=== PATIENT | female | born 1945 | race Caucasian/White ===

== ENCOUNTER 2016-09-25 08:40 | Day surgery (SDC) | payer MEDICARE, BC ==
[~2016-09-25 08:40] MED LIST: Cefuroxime 10 MG/ML SYRINGE EYERT SCH; Lidocaine 1% PF 2 ML SDV INJECT SCH
[2016-09-25] MEDS: Polymyxin B/Trimethoprim 10 ML Bottle EYERT SCH ×5 (10:02→11:34)
[2016-09-25] MEDS: Brimonidine 0.2% Ophth Soln 5 ML Bottle EYERT SCH ×3 (10:08→11:27)
[2016-09-25] MEDS: Phenylephrine 2.5% Ophth Soln 2 ML Bot EYERT SCH ×5 (10:15→11:20)
--- NOTE | 2016-09-25 10:22 | PCM.PREANE ---
Preanesthetic Assessment - Procedure Proposed Procedure: Right eye cataract extraction with IOL - Anesthesia/Transfusion/Family Hx Anesthesia History: Prior Anesthesia Without Reaction Type of Anesthesia Reaction: Unknown Family History of Anesthesia Reaction: No Transfusion History: No Prior Transfusion(s) - Review of Systems General: No Symptoms Pulmonary: No Symptoms Cardiovascular: Other (htn controlled with medications) Gastrointestinal: No symptoms Neurological: No Symptoms Other: Reports: None - Physical Assessment NPO Status Date: 09/24/16 NPO Status Time: 18:30 O2 Sat by Pulse Oximetry: 98 Respiratory Rate: 16 Vital Signs: Last Vital Signs Temp 36.7 C 09/25/16 09:53 Pulse 59 L 09/25/16 09:53 Resp 16 09/25/16 09:53 BP 139/49 L 09/25/16 09:53 Pulse Ox 98 09/25/16 09:53 Height: 1.6 m Weight: 79.379 kg ASA Class: 2 Mental Status: Alert & Oriented x3 Airway Class: Mallampati = 2 Dentition: Reports: Normal Dentition Thyro-Mental Finger Breadths: 3 Mouth Opening Finger Breadths: 3 ROM/Head Extension: Full Lungs: Clear to auscultation, Normal respiratory effort Cardiovascular: Regular Rate, Regular Rhythm - Allergies Allergies/Adverse Reactions: Allergies Allergy/AdvReac Type Severity Reaction Status Date / Time No Known Allergies Allergy Verified 09/24/16 16:26 - Blood Blood Available: No Product(s) Available: None - Anesthesia Plan Pre-Op Medication Ordered: None - Acknowledgements Anesthesia Type Planned: MAC Pt an Appropriate Candidate for the Planned Anesthesia: Yes Alternatives and Risks of Anesthesia Discussed w Pt/Guardian: Yes Pt/Guardian Understands and Agrees with Anesthesia Plan: Yes PreAnesthesia Questionnaire - SUBSTANCE USE Smoking Status *Q: Never Smoker Tobacco Use Within Last Twelve Months: No Second Hand Smoke Exposure: No Recreational Drug Use History: No - HOME MEDS Home Medications: Home Meds Hydrochlorothiazide 12.5 mg PO DAILY 09/24/16 [History] Losartan [Cozaar] 50 mg PO DAILY 09/24/16 [History] - CURRENT (IN HOUSE) MEDS Current Meds: Current Medications Brimonidine Tartrate (Alphagan 0.2% Ophth Soln) 0 ml EYERT ASDIRECTED CLARA Stop: 09/25/16 18:00 Last Admin: 09/25/16 10:08 Dose: 1 drop Cefuroxime Sodium (Zinacef) 0 mg EYERT ASDIRECTED CLARA Stop: 09/25/16 18:00 Lidocaine HCl (Xylocaine-Mpf 1%) 10 ml INJECT ASDIRECTED CLARA Stop: 09/25/16 18:00 Phenylephrine HCl (Nura-Synephrine 2.5% Ophth Soln) 0 ml EYERT ASDIRECTED CLARA Stop: 09/25/16 18:00 Pilocarpine HCl (Pilocar 4% Ophth Soln) 0 ml EYERT ASDIRECTED CLARA Stop: 09/25/16 18:00 Polymyxin/Trimethoprim Sulfate (Polytrim Ophth Soln) 0 ml EYERT ASDIRECTED CLARA Stop: 09/25/16 18:00 Last Admin: 09/25/16 10:02 Dose: 1 drop Tetracaine HCl (Tetracaine 0.5% Steri-Unit Taisha) 0 ml EYERT ASDIRECTED CLARA Stop: 09/25/16 18:00 Tropicamide (Mydriacyl 1% Ophth Soln) 0 ml EYERT ASDIRECTED CLARA Stop: 09/25/16 18:00
[2016-09-25] MEDS: Tetracaine HCl/PF 0.5% 4 ML Bottle EYERT SCH ×2 (11:14→11:27)
[2016-09-25] MEDS: Pilocarpine 4% Ophth Soln 15 ML Bot EYERT SCH ×2 (11:27→11:35)
--- NOTE | 2016-09-25 11:39 | PCM48HPAN ---
Post Anesthesia Note - EVALUATION WITHIN 48HRS OF ANESTHETIC Vital Signs in Normal Range: Yes Patient Participated in Evaluation: Yes Respiratory Function Stable: Yes Airway Patent: Yes Cardiovascular Function Stable: Yes Hydration Status Stable: Yes Pain Control Satisfactory: Yes Nausea and Vomiting Control Satisfactory: Yes Mental Status Recovered: Yes - COMMENTS/OBSERVATIONS Free Text/Narrative:: no anesthetic complications noted
[2016-09-25 11:50] VITALS: BP 122/82
== END 2016-09-25 11:48 | disposition home or self-care (01) ==
LOC: JD.SDS 08:40
PROVIDERS: ATTEND Ophthalmology
PROC: 08RJ3JZ Replacement of Right Lens with Synthetic Substitute, Percutaneous Approach (ICD-10-PCS; principal; 2016-09-25)
DX: H25.811 Combined forms of age-related cataract, right eye (principal); H35.363 Drusen (degenerative) of macula, bilateral; H35.3131 Nonexudative age-related macular degeneration, bilateral, early dry stage; H16.103 Unspecified superficial keratitis, bilateral; H16.223 Keratoconjunctivitis sicca, not specified as Sjogren's, bilateral; I10 Essential (primary) hypertension; Z98.890 Other specified postprocedural states; Z79.899 Other long term (current) drug therapy
CPT/HCPCS: 66984; A9270; J0697; V2632

== ENCOUNTER 2016-10-21 08:34 | Day surgery (SDC) | payer MEDICARE, BC ==
[2016-10-21] MEDS: Polymyxin B/Trimethoprim 10 ML Bottle EYELF SCH ×4 (09:19→10:58)
[2016-10-21] MEDS: Brimonidine 0.2% Ophth Soln 5 ML Bottle EYELF SCH ×4 (09:24→10:58)
[2016-10-21] MEDS: Phenylephrine 2.5% Ophth Soln 2 ML Bot EYELF SCH ×6 (09:30→10:40)
--- NOTE | 2016-10-21 09:33 | PCM.PREANE ---
Preanesthetic Assessment - Anesthesia/Transfusion/Family Hx Anesthesia History: Prior Anesthesia Without Reaction Family History of Anesthesia Reaction: No Transfusion History: No Prior Transfusion(s) - Review of Systems General: No Symptoms Pulmonary: No Symptoms Cardiovascular: No Symptoms Gastrointestinal: No symptoms Neurological: No Symptoms Other: Reports: None - Physical Assessment NPO Status Date: 10/20/16 NPO Status Time: 20:00 Pulse: 63 O2 Sat by Pulse Oximetry: 100 Respiratory Rate: 16 Blood Pressure: 136/59 Temperature: 36.9 C Vital Signs: Last Vital Signs Temp 36.9 C 10/21/16 09:10 Pulse 66 10/21/16 09:10 Resp 16 10/21/16 09:10 BP 136/59 L 10/21/16 09:10 Pulse Ox 100 10/21/16 09:10 Height: 1.6 m Weight: 79.379 kg ASA Class: 1 Mental Status: Alert & Oriented x3 Airway Class: Mallampati = 1 Dentition: Reports: Dentures Thyro-Mental Finger Breadths: 3 Mouth Opening Finger Breadths: 3 ROM/Head Extension: Full Lungs: Clear to auscultation, Normal respiratory effort Cardiovascular: Regular Rate, Regular Rhythm - Allergies Allergies/Adverse Reactions: Allergies Allergy/AdvReac Type Severity Reaction Status Date / Time No Known Allergies Allergy Verified 10/20/16 14:26 - Blood Blood Available: No Product(s) Available: None - Anesthesia Plan Pre-Op Medication Ordered: None - Acknowledgements Anesthesia Type Planned: MAC Pt an Appropriate Candidate for the Planned Anesthesia: Yes Alternatives and Risks of Anesthesia Discussed w Pt/Guardian: Yes Pt/Guardian Understands and Agrees with Anesthesia Plan: Yes PreAnesthesia Questionnaire - SUBSTANCE USE Smoking Status *Q: Never Smoker Tobacco Use Within Last Twelve Months: No Second Hand Smoke Exposure: No Days Per Week of Alcohol Use: 0 Number of Drinks Per Day: 0 Total Drinks Per Week: 0 Recreational Drug Use History: No - HOME MEDS Home Medications: Home Meds Hydrochlorothiazide 12.5 mg PO DAILY 09/24/16 [History] Losartan [Cozaar] 50 mg PO DAILY 09/24/16 [History] Dextran 70/Hypromellose [Artificial Tears] 1 drop EYEBOTH ASDIRECTED 10/20/16 [ History] - CURRENT (IN HOUSE) MEDS Current Meds: Current Medications Brimonidine Tartrate (Alphagan 0.2% Ophth Soln) 0 ml EYELF ASDIRECTED CLARA Stop: 10/21/16 16:00 Last Admin: 10/21/16 09:24 Dose: 1 drop Cefuroxime Sodium (Zinacef) 0 mg EYELF ASDIRECTED CLARA Stop: 10/21/16 18:00 Lidocaine HCl (Xylocaine-Mpf 1%) 10 ml INJECT ASDIRECTED CLARA Stop: 10/21/16 18:00 Phenylephrine HCl (Nura-Synephrine 2.5% Ophth Soln) 0 ml EYELF ASDIRECTED CLARA Stop: 10/21/16 16:00 Pilocarpine HCl (Pilocar 4% Ophth Soln) 0 ml EYELF ASDIRECTED CLARA Stop: 10/21/16 16:00 Polymyxin/Trimethoprim Sulfate (Polytrim Ophth Soln) 0 ml EYELF ASDIRECTED CLARA Stop: 10/21/16 16:00 Last Admin: 10/21/16 09:19 Dose: 1 drop Tetracaine HCl (Tetracaine 0.5% Steri-Unit Taisha) 0 ml EYELF ASDIRECTED CLARA Stop: 10/21/16 16:00 Tropicamide (Mydriacyl 1% Ophth Soln) 0 ml EYELF ASDIRECTED CLARA Stop: 10/21/16 16:00
[2016-10-21] MEDS: Lidocaine 1% PF 2 ML SDV INJECT SCH ×2 (10:09→10:46)
[2016-10-21] MEDS: Tetracaine HCl/PF 0.5% 4 ML Bottle EYELF SCH ×3 (10:09→10:48)
[2016-10-21] MEDS: Cefuroxime 10 MG/ML SYRINGE EYELF SCH ×2 (10:09→10:53)
[2016-10-21] MEDS: Pilocarpine 4% Ophth Soln 15 ML Bot EYELF SCH ×2 (10:10→10:58)
--- NOTE | 2016-10-21 11:01 | PCM48HPAN ---
Post Anesthesia Note - EVALUATION WITHIN 48HRS OF ANESTHETIC Vital Signs in Normal Range: Yes Patient Participated in Evaluation: Yes Respiratory Function Stable: Yes Airway Patent: Yes Cardiovascular Function Stable: Yes Hydration Status Stable: Yes Pain Control Satisfactory: Yes Nausea and Vomiting Control Satisfactory: Yes Mental Status Recovered: Yes
[2016-10-21 11:11] VITALS: BP 148/57
== END 2016-10-21 11:10 | disposition home or self-care (01) ==
LOC: JD.SDS 08:34
PROVIDERS: ATTEND Ophthalmology
DX: H26.9 Unspecified cataract (principal); I10 Essential (primary) hypertension; Z98.890 Other specified postprocedural states; Z79.899 Other long term (current) drug therapy
CPT/HCPCS: 66984; C1780; J0697; A9270-GY

== ENCOUNTER 2023-07-11 13:32 | Emergency (ER) | payer MEDICARE, BC ==
[2023-07-11 14:10] LABS: BASOPHILS PERCENT AUTO 0.2 % (0.0-1.0); HEMATOCRIT 36.1 % (37.0-47.0); HEMOGLOBIN 12.1 gm/dl (12.0-16.0); IMMATURE GRAN ABSOLUTE AUTO 0.11 K/mm3 (0.00-0.05); IMMATURE GRAN PERCENT AUTO 0.6 % (0.0-0.4); LYMPHOCYTES ABSOLUTE AUTO 0.9 K/mm3 (1.0-4.8); LYMPHOCYTES PERCENT AUTO 4.8 % (24.0-44.0); MEAN CORPUSCULAR HEMOGLOBIN 30.7 pg (28.0-32.0); MEAN CORPUSCULAR HGB CONC 33.5 g/dl (32.0-36.0); MEAN CORPUSCULAR VOLUME 91.6 fl (83.0-99.0); MEAN PLATELET VOLUME 9.5 fl (9.4-12.3); MONOCYTES ABSOLUTE AUTO 0.8 K/mm3 (0.0-0.8); MONOCYTES PERCENT AUTO 3.8 % (0.0-8.0); NEUTROPHILS ABSOLUTE AUTO 17.7 K/mm3 (1.8-7.7); NEUTROPHILS PERCENT AUTO 90.6 % (41.0-71.0); PLATELET COUNT,PLT 312 K/mm3 (150-400); RED BLOOD CELL COUNT 3.94 M/mm3 (4.10-5.30); WHITE BLOOD CELL COUNT,WBC 19.55 K/mm3 (3.9-11.3)
[2023-07-11 14:33] LABS: A/G RATIO 0.9 (1-2); ALBUMIN 3.8 g/dl (3.4-5.0); ANION GAP 16.2 (5-15); BILIRUBIN TOTAL 0.9 mg/dL (0.2-1.0); BUN/CREATININE RATIO 22.2 (14-18); CALCIUM 9.2 mg/dL (8.5-10.1); CREATININE 0.9 mg/dL (0.55-1.02); EST CRCL DRUG DOSING (CG) 52.52 mL/min; MAGNESIUM 1.9 mg/dL (1.8-2.4); POTASSIUM,K 3.2 mEq/L (3.5-5.1)
[2023-07-11 14:36] LABS: LACTIC ACID 1.5 mmol/L (0.4-2.0)
[2023-07-11] MEDS: Sodium Chloride 0.9% 1,000 ML IV SCH (14:38)
[2023-07-11] MEDS: Sodium Chloride 0.9% 10 ML Syringe FLUSH PRN (14:38)
[2023-07-11 14:42] LABS: SLIDE REVIEW ABNORMAL SMEAR
[2023-07-11] MEDS: Iopamidol 612 MG/ML 100 ML Bottle IVPUSH ONE (14:45)
[2023-07-11 15:07] LABS: APPEARANCE,URINE CLEAR (Clear); BILIRUBIN,URINE NEGATIVE (Negative); COLOR,URINE YELLOW (Yellow); GLUCOSE,URINE NEGATIVE (Negative); KETONES,URINE 1+ (Negative); LEUKOCYTE ESTERASE,URINE NEGATIVE (Negative); NITRITE,URINE POSITIVE (Negative); OCCULT BLOOD,URINE 2+ (Negative); PROTEIN,URINE 1+ (Negative); UROBILINOGEN,URINE 0.2 (0.2-1.0)
[2023-07-11 15:22] LABS: CORONAVIRUS COVID-19 NAA NEGATIVE (NEGATIVE); INFLUENZA A NAA NEGATIVE (NEGATIVE); RESPIRATORY SYNCYTIAL VIR NAA NEGATIVE (NEGATIVE)
[2023-07-11 15:29] LABS: BACTERIA,URINE MODERATE /hpf (FEW); RBC,URINE 0-5 /hpf (0-5); SQUAMOUS EPITHELIAL CELLS,UR 0-5 /hpf (0-5); WBC,URINE 0-5 /hpf (0-5)
[2023-07-11 15:30] LABS: MUCUS,URINE MODERATE /hpf (FEW)
[2023-07-11 16:30] VITALS: BP 154/59; PULSE 90
== END 2023-07-11 16:15 | disposition home or self-care (01) ==
LOC: JD.ED 13:32
DX: A08.4 Viral intestinal infection, unspecified (principal); R55 Syncope and collapse; Z79.899 Other long term (current) drug therapy
CPT/HCPCS: 0241U; 36415; 70450; 71260; 72125; 74177; 80053; 81001; 83605; 83735; 85025; 86140; 93005; 96360; 96361; 99284; J3490; J7030; Q9967

== ENCOUNTER 2023-07-14 14:37 | Inpatient (IN) | payer MEDICARE ==
[2023-07-14] MEDS ORDERED: Naloxone 0.4 MG/ML SDV IVPUSH PRN (15:15)
[2023-07-14 15:21] LABS: BASOPHILS ABSOLUTE AUTO 0.1 K/mm3 (0.0-0.2); BASOPHILS PERCENT AUTO 0.3 % (0.0-1.0); EOSINOPHILS PERCENT AUTO 0.2 % (0.0-6.0); HEMOGLOBIN 13.3 gm/dl (12.0-16.0); IMMATURE GRAN ABSOLUTE AUTO 0.18 K/mm3 (0.00-0.05); IMMATURE GRAN PERCENT AUTO 0.9 % (0.0-0.4); LYMPHOCYTES ABSOLUTE AUTO 1.3 K/mm3 (1.0-4.8); MEAN CORPUSCULAR HEMOGLOBIN 30.8 pg (28.0-32.0); MEAN CORPUSCULAR HGB CONC 33.3 g/dl (32.0-36.0); MEAN CORPUSCULAR VOLUME 92.6 fl (83.0-99.0); MEAN PLATELET VOLUME 9.9 fl (9.4-12.3); MONOCYTES ABSOLUTE AUTO 0.8 K/mm3 (0.0-0.8); MONOCYTES PERCENT AUTO 3.6 % (0.0-8.0); NEUTROPHILS ABSOLUTE AUTO 18.6 K/mm3 (1.8-7.7); PLATELET COUNT,PLT 381 K/mm3 (150-400); RED BLOOD CELL COUNT 4.32 M/mm3 (4.10-5.30); WHITE BLOOD CELL COUNT,WBC 20.94 K/mm3 (3.9-11.3)
[2023-07-14] MEDS: Sodium Chloride 0.9% 1,000 ML IV ONE (15:25)
[2023-07-14 15:41] LABS: LACTIC ACID 1.5 mmol/L (0.4-2.0)
[2023-07-14 15:44] LABS: A/G RATIO 0.7 (1-2); ALBUMIN 3.5 g/dl (3.4-5.0); ANION GAP 13.6 (5-15); BILIRUBIN TOTAL 0.6 mg/dL (0.2-1.0); CALCIUM 9.7 mg/dL (8.5-10.1); CREATININE 0.9 mg/dL (0.55-1.02); EST CRCL DRUG DOSING (CG) 42.72 mL/min; MAGNESIUM 2.2 mg/dL (1.8-2.4); POTASSIUM,K 3.6 mEq/L (3.5-5.1); PROTEIN TOTAL,TP 8.6 g/dl (6.4-8.2); TSH 4.906 uIU/mL (0.358-3.74)
[2023-07-14] MEDS: cefTRIAXone 1 GM in Sodium Chloride 0.9% 100 ML IV ONE (15:58)
[2023-07-14] MEDS: Morphine 4 MG/ML Syringe IVPUSH ONE (16:31)
[2023-07-14 17:51] LABS: APPEARANCE,URINE SLT CLOUDY (Clear); BILIRUBIN,URINE NEGATIVE (Negative); COLOR,URINE YELLOW (Yellow); GLUCOSE,URINE NEGATIVE (Negative); KETONES,URINE 2+ (Negative); LEUKOCYTE ESTERASE,URINE 1+ (Negative); NITRITE,URINE POSITIVE (Negative); OCCULT BLOOD,URINE 2+ (Negative); PROTEIN,URINE 2+ (Negative); UROBILINOGEN,URINE 0.2 (0.2-1.0)
[2023-07-14 17:57] LABS: BACTERIA,URINE MANY /hpf (FEW); MUCUS,URINE FEW /hpf (FEW); WBC,URINE 30-40 /hpf (0-5)
[2023-07-14] MEDS: Ondansetron 4 MG/2 ML SDV IV PRN (21:08)
[2023-07-14] MEDS: Sodium Chloride 0.9% 1,000 ML IV SCH (21:17)
[2023-07-14] MEDS: Losartan 50 MG Tab PO SCH (21:34)
[2023-07-14] MEDS: Acetaminophen 325 MG Tab PO PRN (22:19)
[2023-07-15 06:36] LABS: HEMATOCRIT 32.6 % (37.0-47.0); HEMOGLOBIN 10.9 gm/dl (12.0-16.0); MEAN CORPUSCULAR HEMOGLOBIN 30.6 pg (28.0-32.0); MEAN CORPUSCULAR HGB CONC 33.4 g/dl (32.0-36.0); MEAN CORPUSCULAR VOLUME 91.6 fl (83.0-99.0); MEAN PLATELET VOLUME 9.6 fl (9.4-12.3); PLATELET COUNT,PLT 301 K/mm3 (150-400); RED BLOOD CELL COUNT 3.56 M/mm3 (4.10-5.30); WHITE BLOOD CELL COUNT,WBC 13.72 K/mm3 (3.9-11.3)
[2023-07-15 06:59] LABS: A/G RATIO 0.6 (1-2); ALBUMIN 2.6 g/dl (3.4-5.0); BILIRUBIN TOTAL 0.4 mg/dL (0.2-1.0); BUN/CREATININE RATIO 34.3 (14-18); C-REACTIVE PROTEIN 10.58 mg/dL (<0.30); CALCIUM 8.5 mg/dL (8.5-10.1); CREATININE 0.7 mg/dL (0.55-1.02); EST CRCL DRUG DOSING (CG) 57.44 mL/min; PROTEIN TOTAL,TP 6.7 g/dl (6.4-8.2)
[2023-07-15] MEDS: Hydrochlorothiazide 12.5 MG Cap PO SCH (09:17)
[2023-07-15] MEDS: Enoxaparin 40 MG/0.4 ML Syringe SUBCUT SCH (09:17)
[2023-07-15] MEDS: Potassium Chloride 20 MEQ Tab.ER PO SCH (12:58)
[2023-07-15] MEDS: cefTRIAXone 2 GM in Sodium Chloride 0.9% 100 ML IV SCH (13:00)
[2023-07-15] MEDS: oxyCODONE 5 MG Tab PO PRN (13:50)
[2023-07-16 04:40] LABS: HEMATOCRIT 33.5 % (37.0-47.0); HEMOGLOBIN 11.3 gm/dl (12.0-16.0); MEAN CORPUSCULAR HEMOGLOBIN 30.3 pg (28.0-32.0); MEAN CORPUSCULAR HGB CONC 33.7 g/dl (32.0-36.0); MEAN CORPUSCULAR VOLUME 89.8 fl (83.0-99.0); PLATELET COUNT,PLT 321 K/mm3 (150-400); RED BLOOD CELL COUNT 3.73 M/mm3 (4.10-5.30); WHITE BLOOD CELL COUNT,WBC 10.19 K/mm3 (3.9-11.3)
[2023-07-16 05:10] LABS: A/G RATIO 0.7 (1-2); ALBUMIN 2.6 g/dl (3.4-5.0); ANION GAP 11.7 (5-15); BILIRUBIN TOTAL 0.4 mg/dL (0.2-1.0); BUN/CREATININE RATIO 25.7 (14-18); C-REACTIVE PROTEIN 6.87 mg/dL (<0.30); CALCIUM 8.7 mg/dL (8.5-10.1); CREATININE 0.7 mg/dL (0.55-1.02); EST CRCL DRUG DOSING (CG) 57.44 mL/min; MAGNESIUM 1.6 mg/dL (1.8-2.4); POTASSIUM,K 3.7 mEq/L (3.5-5.1); PROTEIN TOTAL,TP 6.5 g/dl (6.4-8.2)
[2023-07-16] MEDS: Magnesium Sulfate/Water 2 GM in Premix Bag 1 BAG IV ONE (08:00)
[2023-07-16] MEDS: Potassium Chloride 20 MEQ Tab.ER PO SCH (08:13)
[2023-07-16] MEDS: Lidocaine 4% 1 each Patch TOP SCH (11:01)
[2023-07-17 04:48] LABS: HEMATOCRIT 35.5 % (37.0-47.0); MEAN CORPUSCULAR HEMOGLOBIN 30.2 pg (28.0-32.0); MEAN CORPUSCULAR HGB CONC 33.8 g/dl (32.0-36.0); MEAN CORPUSCULAR VOLUME 89.4 fl (83.0-99.0); MEAN PLATELET VOLUME 9.9 fl (9.4-12.3); PLATELET COUNT,PLT 340 K/mm3 (150-400); RED BLOOD CELL COUNT 3.97 M/mm3 (4.10-5.30); WHITE BLOOD CELL COUNT,WBC 8.89 K/mm3 (3.9-11.3)
[2023-07-17 05:10] LABS: A/G RATIO 0.7 (1-2); ALBUMIN 2.8 g/dl (3.4-5.0); ANION GAP 13.2 (5-15); BILIRUBIN TOTAL 0.4 mg/dL (0.2-1.0); BUN/CREATININE RATIO 24.3 (14-18); C-REACTIVE PROTEIN 3.75 mg/dL (<0.30); CALCIUM 8.9 mg/dL (8.5-10.1); CREATININE 0.7 mg/dL (0.55-1.02); EST CRCL DRUG DOSING (CG) 57.44 mL/min; MAGNESIUM 1.9 mg/dL (1.8-2.4); POTASSIUM,K 4.2 mEq/L (3.5-5.1); PROTEIN TOTAL,TP 6.9 g/dl (6.4-8.2)
[2023-07-17 08:35] VITALS: BP 149/61
[2023-07-17 09:00] VITALS: PULSE 110
[2023-07-17] MEDS: cefTRIAXone 2 GM in Sodium Chloride 0.9% 100 ML IV SCH (09:37)
[2023-07-17] MEDS: Polyethylene Glycol 3350 Powder 17 GM Packet PO ONE (10:11)
== END 2023-07-17 11:07 | DRG 871 ==
LOC: JD.ED 14:37 → JD.MS 18:59
PROVIDERS: ADMIT Internal Medicine; ATTEND Internal Medicine
DX: A41.9 Sepsis, unspecified organism (principal); N39.0 Urinary tract infection, site not specified; E11.9 Type 2 diabetes mellitus without complications; R94.6 Abnormal results of thyroid function studies; R79.9 Abnormal finding of blood chemistry, unspecified; G93.41 Metabolic encephalopathy; N10 Acute pyelonephritis; I10 Essential (primary) hypertension; S22.41XD Multiple fractures of ribs, right side, subsequent encounter for fracture with routine healing; R65.20 Severe sepsis without septic shock; E87.6 Hypokalemia; Z79.899 Other long term (current) drug therapy; Z91.81 History of falling; W19.XXXD Unspecified fall, subsequent encounter
CPT/HCPCS: 36415; 70450; 71045; 80053; 81001; 83605; 83735; 83880; 84443; 85025; 87040; 87086; 96361; 96365; 96375; 99285; J0696; J2270; J3490; J7030; 85027; 86140; 94760; 94761; 97110-GP; 97161-GP; 97530-GP; A9270-GY; J1650; J2405; J3475; U0002